=== PATIENT | male | born 1980 | race Two or more races ===

== ENCOUNTER 2016-12-29 21:06 | Emergency (ER) | payer MEDICAID ==
[~2016-12-29] VITALS: Ht 188 cm; Wt 78.0 kg
[~2016-12-29 21:06] MED LIST: DICY20TA64 PO; MESA800T OR; PRED-188 PO
[2016-12-29 22:03] LABS: Basophils # (auto) 0 uL; Basophils % (auto) 0.4 % (0.0-2.0); Eosinophils # (auto) 0.1 uL; Hematocrit 50.1 % (41.0-53.0); Hemoglobin 16.8 g/dL (13.5-17.5); Lymphocytes # (auto) 1.8 uL; Lymphocytes % (auto) 15.9 % (10.0-50.0); Mean Corpuscular Hemoglobin 30.5 pg (28.0-32.0); Mean Corpuscular Hgb Conc. 33.6 g/dL (32.0-36.0); Mean Corpuscular Volume 90.7 fL (80.0-100.0); Mean Platelet Volume 7.6 fL (7.4-10.4); Monocytes # (auto) 0.9 uL; Monocytes % (auto) 7.8 % (0.0-12.0); Neutrophils # (auto) 8.3 uL; Neutrophils % (auto) 74.9 % (37.0-80.0); Platelet Count (auto) 292 10^3/uL (140-450); Red Cell Distribution Width 13.9 % (11.6-16.0)
[2016-12-29 22:30] LABS: Albumin 3.9 g/dL (3.4-5.0); BUN/Creatinine Ratio 14.6; Potassium 4.2 mmol/L (3.5-5.1)
[2016-12-29 22:33] LABS: Bilirubin, Total 0.5 mg/dL (0.2-1.0); Total Protein 7.9 g/dL (6.4-8.2)
[2016-12-29 23:13] LABS: Urine Bilirubin Negative (Negative); Urine Blood Negative /uL (Negative); Urine Color Yellow (Yellow); Urine Glucose Normal (Normal); Urine Ketone 1+ (Negative); Urine Mucus FEW (None Seen); Urine Nitrite Negative (Negative); Urine RBC <1 /hpf (0 - 3); Urine Urobilinogen Normal (Negative); Urine pH 5.5 (5.0-8.0)
[2016-12-30] MEDS ORDERED: PROMETHAZINE HCL 25 MG/ML 1ML IV ONE (05:00)
[2016-12-30] MEDS ORDERED: HYDROmorphone HCL 2 MG/ML VL IV ONE (05:00)
[2016-12-30] MEDS ORDERED: ONDANSETRON HCL 4 MG/2 ML VIAL IV ONE (09:30)
[2016-12-30] MEDS ORDERED: methylPREDNISolone SOD SUCC 125 MG/2 ML VL IV ONE (10:00)
[2016-12-30 10:50] VITALS: BP 116/68
== END 2016-12-30 09:53 | disposition home or self-care (01) ==
LOC: EEVIPCON 21:17 → ER 21:17
DX: K92.2 Gastrointestinal hemorrhage, unspecified (principal); K51.90 Ulcerative colitis, unspecified, without complications; K50.90 Crohn's disease, unspecified, without complications; F17.290 Nicotine dependence, other tobacco product, uncomplicated; Z88.6 Allergy status to analgesic agent
CPT/HCPCS: 36415; 80053; 81001; 82270; 83690; 85025; 96374; 96375; 99284; J1170; J2405; J2550; J2930

== ENCOUNTER 2017-01-04 21:34 | Inpatient (IN) | payer MEDICAID ==
[~2017-01-04] VITALS: Ht 188 cm; Wt 81.0 kg
[2017-01-04 22:24] LABS: Basophils # (auto) 0.1 uL; Basophils % (auto) 0.6 % (0.0-2.0); Eosinophils # (auto) 0.2 uL; Eosinophils % (auto) 1.5 % (0.0-7.0); Hematocrit 48.1 % (41.0-53.0); Hemoglobin 16.2 g/dL (13.5-17.5); Lymphocytes # (auto) 2.8 uL; Lymphocytes % (auto) 23.7 % (10.0-50.0); Mean Corpuscular Hemoglobin 30.2 pg (28.0-32.0); Mean Corpuscular Hgb Conc. 33.7 g/dL (32.0-36.0); Mean Corpuscular Volume 89.8 fL (80.0-100.0); Mean Platelet Volume 7.5 fL (7.4-10.4); Monocytes # (auto) 1.2 uL; Monocytes % (auto) 10.4 % (0.0-12.0); Neutrophils # (auto) 7.6 uL; Neutrophils % (auto) 63.8 % (37.0-80.0); Platelet Count (auto) 389 10^3/uL (140-450); Red Cell Distribution Width 13.9 % (11.6-16.0)
[2017-01-04 22:36] LABS: Albumin 3.4 g/dL (3.4-5.0); Calcium 8.8 mg/dL (8.5-10.1); Potassium 3.5 mmol/L (3.5-5.1)
[2017-01-04 22:39] LABS: Bilirubin, Total 0.4 mg/dL (0.2-1.0); Total Protein 7.1 g/dL (6.4-8.2)
[2017-01-04 22:41] LABS: INR 1.04 (0.9-1.15); Partial Thromboplastin Time 26.5 sec (22.64-33.71); Prothrombin Time 10.7 sec (9.37-12.3)
[2017-01-05] MEDS ORDERED: SODIUM CHLORIDE 0.9% 1,000 ML IVB ONE (07:43)
[2017-01-05] MEDS ORDERED: METOCLOPRAMIDE HCL 5MG/ml INJ 2ml VIAL IV ONE ×2 (07:45→09:45)
[2017-01-05] MEDS ORDERED: LORazepam 2MG/ML-1ML VIAL IV ONE (07:45)
[2017-01-05 08:26] LABS: Urine RBC None Seen /hpf (0 - 3)
[2017-01-05 08:42] LABS: Urine Bilirubin Negative (Negative); Urine Blood Negative /uL (Negative); Urine Color Yellow (Yellow); Urine Glucose Normal (Normal); Urine Ketone Negative (Negative); Urine Mucus FEW (None Seen); Urine Nitrite Negative (Negative)
[2017-01-05] MEDS ORDERED: NALBUPHINE HCL 10 MG/1ml INJECTION IV ONE (09:45)
[2017-01-05] MEDS ORDERED: methylPREDNISolone SOD SUCC 125 MG/2 ML VL IV ONE (11:30)
[2017-01-05] MEDS ORDERED: LEVOFLOXACIN 500MG 100 ML IV ONE (11:30)
[2017-01-05] MEDS ORDERED: cefTRIAXone 1GM/50ML D5W 50 ML IV ONE (12:00)
[2017-01-05] MEDS ORDERED: HYDROCORTISONE SOD SUCC 100 MG/2ML INJ VIAL IV ONE (12:00)
[2017-01-05] MEDS ORDERED: HYDROcodone-ACET 5/325MG TAB PO PRN (12:00)
[2017-01-05] MEDS ORDERED: NITROGLYCERIN 0.4 MG SL TAB SL PRN (12:00)
[2017-01-05] MEDS ORDERED: ACETAMINOPHEN 500 MG TAB PO PRN (12:00)
[2017-01-05] MEDS: SODIUM CHLORIDE 0.9% 1,000 ML IV SCH ×2 (12:35→21:50)
[2017-01-05] MEDS ORDERED: diphenhdrAMINE HCL 50 MG/1 ML VL IV ONE (12:45)
[2017-01-05] MEDS: PROMETHAZINE HCL 25 MG/ML 1ML IV PRN ×3 (13:09→21:49)
[2017-01-05] MEDS: HYDROmorphone HCL 2 MG/ML VL IV PRN ×3 (13:09→21:49)
[2017-01-05] MEDS: FAMOTIDINE 20 MG TAB PO SCH ×2 (13:09→21:48)
[2017-01-05 13:42] LABS: Hematocrit 43.6 % (41.0-53.0); Hemoglobin 14.6 g/dL (13.5-17.5)
[2017-01-05] MEDS: metroNIDAZOLE 500MG/100ML 100 ML IV SCH ×2 (14:20→18:38)
[2017-01-05 14:25] VITALS: BP 112/72
[2017-01-05 17:00] VITALS: BP 120/69
[2017-01-05 18:42] LABS: Hematocrit 42.7 % (41.0-53.0); Hemoglobin 14.4 g/dL (13.5-17.5)
[2017-01-05 20:00] VITALS: BP 105/64
[2017-01-05] MEDS: HYDROCORTISONE SOD SUCC 100 MG/2ML INJ VIAL IV SCH (20:21)
[2017-01-05 22:00] VITALS: BP 105/64
[2017-01-06 01:02] LABS: Hematocrit 42.8 % (41.0-53.0); Hemoglobin 14.3 g/dL (13.5-17.5)
[2017-01-06] MEDS: metroNIDAZOLE 500MG/100ML 100 ML IV SCH ×4 (01:09→18:45)
[2017-01-06] MEDS: TEMAZEPAM 15 MG CAP PO PRN (01:14)
[2017-01-06] MEDS: PROMETHAZINE HCL 25 MG/ML 1ML IV PRN ×5 (04:08→20:43)
[2017-01-06] MEDS: HYDROmorphone HCL 2 MG/ML VL IV PRN ×5 (04:09→20:43)
[2017-01-06] MEDS: HYDROCORTISONE SOD SUCC 100 MG/2ML INJ VIAL IV SCH ×2 (04:09→11:47)
[2017-01-06 05:00] VITALS: BP 100/58
[2017-01-06 06:42] LABS: Hematocrit 42.4 % (41.0-53.0); Hemoglobin 14.1 g/dL (13.5-17.5); Mean Corpuscular Hemoglobin 30.1 pg (28.0-32.0); Mean Corpuscular Hgb Conc. 33.3 g/dL (32.0-36.0); Mean Corpuscular Volume 90.6 fL (80.0-100.0); Mean Platelet Volume 7.5 fL (7.4-10.4); Platelet Count (auto) 367 10^3/uL (140-450); SUSPECT VIEW TRANSMISSION
[2017-01-06 06:44] LABS: Metamyelocytes % 0; Myelocytes % 0; Promyelocytes % 0; Reactive Lymphocytes 0
[2017-01-06 08:30] VITALS: BP 104/54
[2017-01-06] MEDS ORDERED: cefTRIAXone 1GM/50ML D5W 50 ML IV SCH (09:00)
[2017-01-06] MEDS: FAMOTIDINE 20 MG TAB PO SCH (10:51)
[2017-01-06] MEDS: SODIUM CHLORIDE 0.9% 1,000 ML IV SCH ×2 (11:48→14:00)
[2017-01-06] MEDS: LORazepam 0.5 MG TAB PO PRN ×2 (11:48→21:49)
[2017-01-06 12:30] VITALS: BP 120/63
[2017-01-06 13:13] LABS: Burr Cells FEW; Platelet Estimate Adequate
[2017-01-06] MEDS: predniSONE 20 MG TAB PO SCH (13:22)
[2017-01-06] MEDS ORDERED: INFLUENZA QUAD 2016-2017 0.5 ML SYRG IM ONE (16:30)
[2017-01-06 16:57] VITALS: BP 134/71
[2017-01-06] MEDS: SULFASALAZINE 500 MG TAB PO SCH ×2 (18:45→21:40)
[2017-01-06 20:00] VITALS: BP 118/68
[2017-01-06 22:00] VITALS: BP 118/68
[2017-01-07] MEDS: metroNIDAZOLE 500MG/100ML 100 ML IV SCH ×2 (00:56→06:46)
[2017-01-07] MEDS: PROMETHAZINE HCL 25 MG/ML 1ML IV PRN ×5 (01:09→20:11)
[2017-01-07] MEDS: HYDROmorphone HCL 2 MG/ML VL IV PRN ×5 (01:09→20:11)
[2017-01-07] MEDS: TEMAZEPAM 15 MG CAP PO PRN (01:53)
[2017-01-07] MEDS: SODIUM CHLORIDE 0.9% 1,000 ML IV SCH (04:39)
[2017-01-07 05:00] VITALS: BP 128/79
[2017-01-07] MEDS: SULFASALAZINE 500 MG TAB PO SCH ×4 (05:53→22:04)
[2017-01-07 08:00] VITALS: BP 116/67
[2017-01-07] MEDS: LORazepam 0.5 MG TAB PO PRN ×2 (09:45→22:20)
[2017-01-07] MEDS: predniSONE 20 MG TAB PO SCH (09:45)
[2017-01-07 11:00] VITALS: BP 102/63
[2017-01-07] MEDS: SOD CHL 0.9%/ KCL 20MEQ 1,000 ML IV SCH ×2 (12:02→22:20)
[2017-01-07 16:59] VITALS: BP 99/63
[2017-01-07 22:00] VITALS: BP 116/75
[2017-01-08] MEDS: HYDROmorphone HCL 2 MG/ML VL IV PRN ×6 (00:52→22:32)
[2017-01-08] MEDS: PROMETHAZINE HCL 25 MG/ML 1ML IV PRN ×6 (00:52→22:32)
[2017-01-08] MEDS: TEMAZEPAM 15 MG CAP PO PRN (01:43)
[2017-01-08 05:00] VITALS: BP 118/79
[2017-01-08 05:57] LABS: Basophils # (auto) 0 uL; Basophils % (auto) 0.2 % (0.0-2.0); Eosinophils # (auto) 0 uL; Eosinophils % (auto) 0.1 % (0.0-7.0); Hematocrit 43.6 % (41.0-53.0); Hemoglobin 14.6 g/dL (13.5-17.5); Lymphocytes # (auto) 2.3 uL; Lymphocytes % (auto) 15.1 % (10.0-50.0); Mean Corpuscular Hemoglobin 30.4 pg (28.0-32.0); Mean Corpuscular Hgb Conc. 33.6 g/dL (32.0-36.0); Mean Corpuscular Volume 90.6 fL (80.0-100.0); Mean Platelet Volume 7.6 fL (7.4-10.4); Monocytes # (auto) 1.2 uL; Neutrophils # (auto) 11.5 uL; Neutrophils % (auto) 76.6 % (37.0-80.0); Platelet Count (auto) 431 10^3/uL (140-450); Red Cell Distribution Width 14.1 % (11.6-16.0)
[2017-01-08 06:10] LABS: BUN/Creatinine Ratio 10.1; Calcium 8.4 mg/dL (8.5-10.1)
[2017-01-08] MEDS: SULFASALAZINE 500 MG TAB PO SCH ×4 (06:28→22:33)
[2017-01-08 08:11] VITALS: BP 114/66
[2017-01-08 09:00] VITALS: BP 114/66
[2017-01-08] MEDS: predniSONE 20 MG TAB PO SCH (09:33)
[2017-01-08] MEDS: SOD CHL 0.9%/ KCL 20MEQ 1,000 ML IV SCH ×3 (09:33→23:05)
[2017-01-08] MEDS ORDERED: GOLYTELY 4L KIT PO ONE (11:15)
[2017-01-08] MEDS: BOOST PLUS 8 ounce PO SCH ×2 (12:09→18:20)
[2017-01-08] MEDS: LORazepam 0.5 MG TAB PO PRN ×2 (12:42→20:40)
[2017-01-08 13:30] VITALS: BP 126/68
[2017-01-08] MEDS: methylPREDNISolone SOD SUCC 125 MG/2 ML VL IV SCH ×2 (13:42→22:32)
[2017-01-08 16:55] VITALS: BP 122/72
[2017-01-08 20:00] VITALS: BP 133/78
[2017-01-09] VITALS (7 sets, daily range): BP systolic 109–124; BP diastolic 66–75
[2017-01-09] MEDS: TEMAZEPAM 15 MG CAP PO PRN (01:54)
[2017-01-09] MEDS: HYDROmorphone HCL 2 MG/ML VL IV PRN ×5 (02:33→22:21)
[2017-01-09] MEDS: PROMETHAZINE HCL 25 MG/ML 1ML IV PRN ×5 (02:33→22:21)
[2017-01-09] MEDS: SULFASALAZINE 500 MG TAB PO SCH ×5 (06:00→22:03)
[2017-01-09] MEDS: methylPREDNISolone SOD SUCC 125 MG/2 ML VL IV SCH ×3 (06:13→22:03)
[2017-01-09] MEDS: BOOST PLUS 8 ounce PO SCH ×3 (08:00→18:12)
[2017-01-09] MEDS ORDERED: diphenhdrAMINE HCL 50 MG/1 ML VL ONE (08:10)
[2017-01-09] MEDS ORDERED: FLUMAZENIL 0.1 MG/ML INJ 10ML MDV IV ONE (08:10)
[2017-01-09] MEDS ORDERED: SODIUM CHLORIDE LOCK 10 ML ONE (08:10)
[2017-01-09] MEDS ORDERED: NALOXONE HCL 0.4 MG/ML VIAL ONE (08:10)
[2017-01-09] MEDS: MIDAZOLAM HCL 5 MG/ML-1ML VIAL ONE ×3 (08:48→08:54)
[2017-01-09] MEDS: fentaNYL CITRATE 100 MCG/2 ML VL ONE ×3 (08:48→08:54)
[2017-01-09] MEDS ORDERED: fentaNYL CITRATE 100 MCG/2 ML VL ONE (08:49)
[2017-01-09] MEDS ORDERED: MIDAZOLAM HCL 5 MG/ML-1ML VIAL ONE (08:49)
[2017-01-09] MEDS: LORazepam 0.5 MG TAB PO PRN ×2 (13:34→20:30)
[2017-01-09] MEDS: SOD CHL 0.9%/ KCL 20MEQ 1,000 ML IV SCH ×2 (13:35→22:04)
[2017-01-09] MEDS ORDERED: HYDROCORTISONE 100 MG/60 ML RECT ENEMA PR SCH (22:00)
[2017-01-10] MEDS: PROMETHAZINE HCL 25 MG/ML 1ML IV PRN ×2 (04:58→10:22)
[2017-01-10] MEDS: HYDROmorphone HCL 2 MG/ML VL IV PRN ×2 (04:58→10:22)
[2017-01-10 05:00] VITALS: BP 111/57
[2017-01-10] MEDS: methylPREDNISolone SOD SUCC 125 MG/2 ML VL IV SCH (05:55)
[2017-01-10] MEDS: SULFASALAZINE 500 MG TAB PO SCH (05:55)
[2017-01-10] MEDS: BOOST PLUS 8 ounce PO SCH (08:45)
[2017-01-10 09:00] VITALS: BP 114/70
[2017-01-10] MEDS: LORazepam 0.5 MG TAB PO PRN (09:11)
[2017-01-10] MEDS ORDERED: PANT40TA2 PO (09:29)
[2017-01-10] MEDS ORDERED: TRAM50TA2 PO (09:29)
[2017-01-10] MEDS ORDERED: SUL500T PO (09:29)
[2017-01-10] MEDS ORDERED: [UNRECOGNIZED DRUG - CODE] PR (09:31)
[2017-01-10] MEDS ORDERED: PRE5T PO (09:36)
[2017-01-10] MEDS: SOD CHL 0.9%/ KCL 20MEQ 1,000 ML IV SCH (09:53)
== END 2017-01-10 19:07 | disposition home or self-care (01) | DRG 245 ==
LOC: ER 21:43 → TELE 21:44 → TELE-WESTW 01-05 13:23 → WEST WING 01-07 12:01
PROVIDERS: ADMIT Internal Medicine; ATTEND Internal Medicine
PROC: 0DBL8ZX Excision of Transverse Colon, Via Natural or Artificial Opening Endoscopic, Diagnostic (ICD-10-PCS; 2017-01-09)
PROC: 0DBM8ZX Excision of Descending Colon, Via Natural or Artificial Opening Endoscopic, Diagnostic (ICD-10-PCS; 2017-01-09)
PROC: 0DBP8ZX Excision of Rectum, Via Natural or Artificial Opening Endoscopic, Diagnostic (ICD-10-PCS; principal; 2017-01-09 08:46)
DX: K51.811 Other ulcerative colitis with rectal bleeding (principal); E86.0 Dehydration; T38.0X5A Adverse effect of glucocorticoids and synthetic analogues, initial encounter; D72.829 Elevated white blood cell count, unspecified; K62.89 Other specified diseases of anus and rectum; Z82.5 Family history of asthma and other chronic lower respiratory diseases; Z83.71 Family history of colonic polyps; Z91.14 Patient's other noncompliance with medication regimen; Z88.5 Allergy status to narcotic agent; Z82.49 Family history of ischemic heart disease and other diseases of the circulatory system; Z88.1 Allergy status to other antibiotic agents; Z23 Encounter for immunization
CPT/HCPCS: 36415; 45380; 71020; 74176; 80048; 80053; 81001; 82270; 83690; 83735; 85007; 85014; 85018; 85025; 85027; 85045; 85048; 85610; 85652; 85730; 86141; 86850; 86900; 86901; 87045; 87493; 87899; 96361; 96365; 96367; 96375; 96376; J0696; J1956; J2250; J3490; J7042